=== PATIENT | female | born 1980 | race Two or more races ===

== ENCOUNTER 2016-04-04 15:51 | Emergency (ER) | payer SELFPAY ==
[~2016-04-04] VITALS: Ht 157.5 cm; Wt 54.4 kg
[2016-04-04 16:18] VITALS: BP 116/68
--- NOTE | 2016-04-04 16:20 | Emergency Room Report ---
History of Present Illness General Chief Complaint: Medical Clearance Source: Patient, EMS - police (ALEXI WALKER) Present Illness HPI The patient is a 35-year-old female presenting for medical clearance for booking. The patient was found on the street smoking methamphetamine. The master police detective stated that the patient then became hyperactive. The patient is not cooperating with questioning (ALEXI WALKER) Allergies: Coded Allergies: UNABLE TO ASSESS (Unverified , 04/04/16) PATIENT IS UNRESPONSIVE Patient History Past Medical History: see triage record Pertinent Family History: none Social History: Reports: drug use Last Menstrual Period: 03/17/16 Now: No Reviewed Nursing Documentation: PMH: Agreed, PSxH: Agreed (ALEXI WALKER) Nursing Documentation-PMH Past Medical History Deferred: Pt Cognitively Impaired (ALEXI WALKER) Review of Systems All Other Systems: negative except mentioned in HPI (ALEXI WALKER) Physical Exam Vital Signs Date Time Temp Pulse Resp B/P Pulse Ox O2 Delivery O2 Flow Rate FiO2 04/04/16 15:59 97.9 116 15 116/68 98 Room Air Sp02 EP Interpretation: reviewed, normal General Appearance: no apparent distress, alert Head: normocephalic, atraumatic Eyes: bilateral eye other - dilated ENT: hearing grossly normal, normal pharynx, no angioedema, normal voice Neck: full range of motion, no bony tend, supple/symm/no masses Respiratory: chest non-tender, lungs clear, normal breath sounds, no wheezing, speaking full sentences Cardiovascular #1: regular rate, rhythm, no edema Gastrointestinal: normal bowel sounds, non tender, soft, non-distended, no guarding, no rebound Genitourinary: normal inspection, no CVA tenderness Musculoskeletal: back normal, gait/station normal, normal range of motion, non- tender Neurologic: motor strength/tone normal, sensory intact Psychiatric: other - Hyperactive Skin: normal color, no rash, warm/dry, well hydrated (ALEXI WALKER) Medical Decision Making PA Attestation Dr. Gifford is my supervising physician. Patient management was discussed with my supervising physician (ALEXI WALKER) Diagnostic Impression: Primary Impression: Drug abuse ER Course The police officers provided a video of the patient smoking presumably methamphetamine. The pt in the video was calm at that time. Differential diagnosis considered: Psychosis, drug abuse, alcohol abuse Physical exam: Afebrile. The patient is tachycardic. No apparent distress. The patient is uncooperative with physical exam. Pupils are dilated bilaterally. Jaw is clenched. Heart: Increased rate. No murmurs, rubs, gallops. Lungs are clear to auscultation bilaterally Skin is warm and dry. No signs of trauma. The patient will be discharged in custody. The patient is medically cleared (ALEXI WALKER) Last Vital Signs Date Time Temp Pulse Resp B/P Pulse Ox O2 Delivery O2 Flow Rate FiO2 04/04/16 15:59 97.9 116 15 116/68 98 Room Air Status: improved (ALEXI WALKER) Last Vital Signs Date Time Temp Pulse Resp B/P Pulse Ox O2 Delivery O2 Flow Rate FiO2 04/04/16 16:22 97.9 115 15 116/68 98 Room Air (Chuy Gifford M.D.) Disposition: D/C TO LAW ENFORCEMENT IN [facility]UST Condition: Stable Departure Forms: Retirement Clearance Patient Instructions: Stimulant Use Disorder-Methamphetamines Additional Instructions: The patient is medically cleared to book. ALEXI WALKER Apr 04, 2016 16:20 Chuy Gifford M.D. Apr 09, 2016 06:58
[2016-04-04 16:22] VITALS: BP 116/68
== END 2016-04-04 16:32 ==
LOC: EMR 16:10
DX: F15.10 Other stimulant abuse, uncomplicated (principal)
CPT/HCPCS: 99282